=== PATIENT | female | born 1955 | race Caucasian/White ===

== ENCOUNTER → 2018-03-31 | Outpatient (CLI) | payer BC ==
[2018-03-31 13:41] LABS: BASOPHILS ABSOLUTE AUTO 0.04 K/mm3 (0.00-0.23); BASOPHILS PERCENT AUTO 1 % (0-2); EOSINOPHILS ABSOLUTE AUTO 0.09 K/mm3 (0.00-0.68); EOSINOPHILS PERCENT AUTO 1 % (0-6); Hematocrit 45.5 % (33.0-51.0); Hemoglobin 15.1 g/dL (11.5-16.0); IMMATURE GRAN ABSOLUTE AUTO 0.02 K/mm3 (0.00-0.10); IMMATURE GRAN PERCENT AUTO 0 % (0-1); LYMPHOCYTES ABSOLUTE AUTO 2.51 K/mm3 (0.84-5.20); LYMPHOCYTES PERCENT AUTO 34 % (21-46); MONOCYTES ABSOLUTE AUTO 0.62 K/mm3 (0.16-1.47); MONOCYTES PERCENT AUTO 8 % (4-13); Mean Corpuscular HGB 29.4 pg (26.0-34.0); Mean Corpuscular HGB Conc 33.2 g/dL (31.5-36.5); Mean Corpuscular Volume 89 fL (80-100); Mean Platelet Volume 11.5 fL (9.1-12.4); NEUTROPHILS ABSOLUTE AUTO 4.18 K/mm3 (1.96-9.15); NEUTROPHILS PERCENT AUTO 56 % (41-73); Platelet Count 247 K/mm3 (150-400); RDW Coefficient Variation 12.8 % (11.7-14.2); RDW Standard Deviation 41.3 fL (35.1-46.3); Red Blood Cell Count 5.13 M/mm3 (3.80-5.20); White Blood Cell Count 7.46 K/mm3 (4.00-11.30)
[2018-03-31 14:31] LABS: Alanine Aminotransfer (ALT/SGP 30 U/L (12-78); Albumin/Globulin Ratio 1.2 (0.8-1.8); Alk Phos 93 U/L (50-136); Anion Gap 13 mmol/L (6-16); Aspartate Aminotrans (AST/SGOT 27 U/L (12-37); Bilirubin, Total 0.5 mg/dL (0.1-1.0); Blood Urea Nitrogen 13 mg/dL (8-24); Bun/Creatinine Ratio 13.3 (12.0-20.0); CO2, Blood 20 mmol/L (21-32); Calcium, Blood 9.5 mg/dL (8.5-10.1); Chloride, Blood 107 mmol/L (98-108); Creatinine, Blood 0.98 mg/dL (0.40-1.00); Free Thyroxine 1.29 ng/dL (0.70-1.60); Globulin, Blood 3.2 g/dL (2.2-4.0); Glomerular Filtration Rate >60 (60-); Glucose, Blood 99 mg/dL (70-99); Potassium, Blood 3.8 mmol/L (3.5-5.5); Sodium, Blood 140 mmol/L (136-145); Total Protein, Blood 7.2 g/dL (6.4-8.2)
== END ==
LOC: LAB 13:25 → LAB SHORT 13:25
PROVIDERS: Hospitalist
DX: E03.9 Hypothyroidism, unspecified (principal); E78.5 Hyperlipidemia, unspecified; I10 Essential (primary) hypertension
CPT/HCPCS: 80053; 84439; 84443; 85025

== ENCOUNTER → 2018-09-01 | Outpatient (CLI) | payer BC ==
[2018-09-02 16:07] LABS: HPV 16 Negative (Negative); HPV 18 Negative (Negative); HPV OTHER HR TYPES Negative (Negative)
== END | disposition home or self-care (01) ==
LOC: LAB 13:19 → LAB SHORT 13:19
PROVIDERS: Nurse Practitioner Women's Health
DX: Z12.4 Encounter for screening for malignant neoplasm of cervix (principal); N89.8 Other specified noninflammatory disorders of vagina; Z91.89 Other specified personal risk factors, not elsewhere classified
CPT/HCPCS: 87070; 87147; 87205; 87624; G0123

== ENCOUNTER 2019-03-02 08:00 | Day surgery (SDC) | payer BC ==
[~2019-03-02 08:00] MED LIST: Azor 5-20 MG T1 EACH PO; CHOL10002 PO; COQ1050 MG PO; DIGOX125 MCG PO; ELIQUIS5 MG PO; LEVSOD88 PO; METO50 PO; MULTI VITAMIN1 EACH PO; NAPR220 PO; Vitamin B Comple1 EA PO; ZINC15 PO
== END 2019-03-02 22:39 | disposition home or self-care (01) ==
LOC: MOI MAM 08:00
DX: D24.2 Benign neoplasm of left breast (principal)
CPT/HCPCS: 19081; 88305

== ENCOUNTER → 2019-05-06 | Outpatient (CLI) | payer BC ==
[2019-05-06 14:57] LABS: Free Thyroxine 1.28 ng/dL (0.70-1.60); Thyroid Stimulating Hormone 2.98 uIU/mL (0.360-4.800)
== END | disposition home or self-care (01) ==
LOC: LAB SHORT 13:06 → LAB 13:06
PROVIDERS: Hospitalist
DX: E03.9 Hypothyroidism, unspecified (principal)
CPT/HCPCS: 84439; 84443

== ENCOUNTER → 2022-01-30 | Outpatient (CLI) | payer BC ==
[2022-01-30 15:34] LABS: BASOPHILS ABSOLUTE AUTO 0.04 K/mm3 (0.00-0.23); BASOPHILS PERCENT AUTO 1 % (0-2); EOSINOPHILS ABSOLUTE AUTO 0.07 K/mm3 (0.00-0.68); EOSINOPHILS PERCENT AUTO 1 % (0-6); Hematocrit 45.9 % (33.0-51.0); Hemoglobin 15.5 g/dL (11.5-16.0); IMMATURE GRAN ABSOLUTE AUTO 0.02 K/mm3 (0.00-0.10); IMMATURE GRAN PERCENT AUTO 0 % (0-1); LYMPHOCYTES ABSOLUTE AUTO 1.11 K/mm3 (0.84-5.20); LYMPHOCYTES PERCENT AUTO 18 % (21-46); MONOCYTES ABSOLUTE AUTO 0.58 K/mm3 (0.16-1.47); MONOCYTES PERCENT AUTO 9 % (4-13); Mean Corpuscular HGB 30.9 pg (26.0-34.0); Mean Corpuscular HGB Conc 33.8 g/dL (31.5-36.5); Mean Corpuscular Volume 92 fL (80-100); Mean Platelet Volume 11.5 fL (9.1-12.4); NEUTROPHILS PERCENT AUTO 71 % (41-73); Platelet Count 218 K/mm3 (150-400); RDW Coefficient Variation 12.4 % (11.7-14.2); RDW Standard Deviation 41.7 fL (35.1-46.3); Red Blood Cell Count 5.01 M/mm3 (3.80-5.20); White Blood Cell Count 6.32 K/mm3 (4.00-11.30)
[2022-01-30 16:00] LABS: Free Thyroxine 1.24 ng/dL (0.70-1.60)
[2022-01-30 16:03] LABS: Albumin, Blood 3.6 g/dL (3.4-5.0); Albumin/Globulin Ratio 1.2 (0.8-1.8); Bilirubin, Total 0.5 mg/dL (0.1-1.0); Calcium, Blood 9.7 mg/dL (8.5-10.1); Creatinine, Blood 0.77 mg/dL (0.40-1.00); Globulin, Blood 3.1 g/dL (2.2-4.0); Potassium, Blood 4.5 mmol/L (3.5-5.5); Thyroid Stimulating Hormone 2.69 uIU/mL (0.360-4.800); Total Protein, Blood 6.7 g/dL (6.4-8.2); Triiodothyronine, Free 2.24 pg/mL (2.18-3.98)
== END | disposition home or self-care (01) ==
LOC: LAB SHORT 13:11 → LAB 13:11
PROVIDERS: Hospitalist
DX: I48.11 Longstanding persistent atrial fibrillation (principal); E03.9 Hypothyroidism, unspecified
CPT/HCPCS: 80053; 84439; 84443; 84481; 85025

== ENCOUNTER → 2022-11-19 | Outpatient (CLI) | payer BC ==
[2022-11-19 19:57] LABS: Alanine Aminotransfer (ALT/SGP 26 U/L (12-78); Albumin, Blood 3.7 g/dL (3.4-5.0); Albumin/Globulin Ratio 1.4 (0.8-1.8); Alk Phos 86 U/L (50-136); Anion Gap 3 mmol/L (6-16); Aspartate Aminotrans (AST/SGOT 18 U/L (12-37); Bilirubin, Total 0.4 mg/dL (0.1-1.0); Blood Urea Nitrogen 21 mg/dL (8-24); Bun/Creatinine Ratio 26.4 (12.0-20.0); CHOL/HDL RATIO 2.7; CO2, Blood 26 mmol/L (21-32); Calcium, Blood 9.6 mg/dL (8.5-10.1); Chloride, Blood 108 mmol/L (98-108); Cholesterol 185 mg/dL (50-200); Free Thyroxine 1.13 ng/dL (0.70-1.60); Globulin, Blood 2.7 g/dL (2.2-4.0); Glomerular Filtration Rate 80 (60-); Glucose, Blood 100 mg/dL (70-99); HDL Cholesterol 68 mg/dL (>39); LDL/HDL RATIO 1.5; Low Density Lipoprotein Chol 100 mg/dL (0-110); Sodium, Blood 137 mmol/L (136-145); Total Protein, Blood 6.4 g/dL (6.4-8.2); Triglycerides 85 mg/dL (30-160); Very Low Density Lipoprot Chol 17 mg/dL (6-32)
[2022-11-19 20:02] LABS: Triiodothyronine, Free 1.95 pg/mL (2.18-3.98)
== END | disposition home or self-care (01) ==
LOC: LAB 13:45 → LAB SHORT 13:45
PROVIDERS: Hospitalist
DX: H57.89 Other specified disorders of eye and adnexa (principal); E03.9 Hypothyroidism, unspecified; E78.5 Hyperlipidemia, unspecified; I10 Essential (primary) hypertension
CPT/HCPCS: 80053; 80061; 84439; 84443; 84481; 85651

== ENCOUNTER → 2023-07-15 | Outpatient (CLI) | payer BC ==
[2023-07-15 17:25] LABS: CHOL/HDL RATIO 2.7; Cholesterol 202 mg/dL (50-200); Free Thyroxine 1.21 ng/dL (0.70-1.60); HDL Cholesterol 74 mg/dL (>39); LDL/HDL RATIO 1.5; Low Density Lipoprotein Chol 112 mg/dL (0-110); Triglycerides 78 mg/dL (30-160); Very Low Density Lipoprot Chol 15 mg/dL (6-32)
[2023-07-15 17:28] LABS: Triiodothyronine, Free 2.35 pg/mL (2.18-3.98)
== END | disposition home or self-care (01) ==
LOC: LAB 11:00 → LAB SHORT 11:00
PROVIDERS: Hospitalist
DX: E03.9 Hypothyroidism, unspecified (principal); E78.5 Hyperlipidemia, unspecified
CPT/HCPCS: 80061; 84439; 84443; 84481

== ENCOUNTER → 2024-05-19 | Outpatient (CLI) | payer BC ==
[2024-05-19 15:19] LABS: Anion Gap 10 mmol/L (3-11); Blood Urea Nitrogen 15 mg/dL (8-24); Bun/Creatinine Ratio 18.6 (12.0-20.0); CHOL/HDL RATIO 2.4; CO2, Blood 24 mmol/L (21-32); Calcium, Blood 9.5 mg/dL (8.5-10.1); Chloride, Blood 112 mmol/L (98-108); Cholesterol 196 mg/dL (50-200); Creatinine, Blood 0.81 mg/dL (0.40-1.00); Free Thyroxine 1.18 ng/dL (0.70-1.60); Glomerular Filtration Rate 78 (60-); Glucose, Blood 97 mg/dL (70-99); HDL Cholesterol 80 mg/dL (>39); LDL/HDL RATIO 1.2; Low Density Lipoprotein Chol 100 mg/dL (0-110); Potassium, Blood 4.4 mmol/L (3.5-5.5); Sodium, Blood 142 mmol/L (136-145); Triglycerides 81 mg/dL (30-160); Very Low Density Lipoprot Chol 16 mg/dL (6-32)
== END ==
LOC: LAB 13:36 → LAB SHORT 13:36
PROVIDERS: Hospitalist
DX: E03.9 Hypothyroidism, unspecified (principal); E78.5 Hyperlipidemia, unspecified; I10 Essential (primary) hypertension
CPT/HCPCS: 80048; 80061; 84439; 84443

== ENCOUNTER 2025-04-27 15:01 | Inpatient (IN) | payer MEDICARE, BC ==
[~2025-04-27] VITALS: Ht 160 cm; Wt 129.2 kg
[2025-04-27 15:27] LABS: pH Blood Venous 7.39 (7.34-7.37)
[2025-04-27] MEDS ORDERED: Metoprolol Tartrate 1 MG/ML 5 ML VIAL IV PRN (15:30)
[2025-04-27] MEDS ORDERED: Tambocor100 MG PO (15:31)
[2025-04-27] MEDS ORDERED: NS 1,000 ML IV SCH (15:35)
[2025-04-27 15:40] LABS: BASOPHILS ABSOLUTE AUTO 0.05 K/mm3 (0.00-0.23); BASOPHILS PERCENT AUTO 1 % (0-2); EOSINOPHILS ABSOLUTE AUTO 0.05 K/mm3 (0.00-0.68); EOSINOPHILS PERCENT AUTO 1 % (0-6); Hematocrit 46.9 % (33.0-51.0); Hemoglobin 15.8 g/dL (11.5-16.0); IMMATURE GRAN ABSOLUTE AUTO 0.03 K/mm3 (0.00-0.10); IMMATURE GRAN PERCENT AUTO 0 % (0-1); LYMPHOCYTES ABSOLUTE AUTO 1.09 K/mm3 (0.84-5.20); LYMPHOCYTES PERCENT AUTO 13 % (21-46); MONOCYTES ABSOLUTE AUTO 0.60 K/mm3 (0.16-1.47); MONOCYTES PERCENT AUTO 7 % (4-13); Mean Corpuscular HGB Conc 33.7 g/dL (31.5-36.5); Mean Corpuscular Volume 93 fL (80-100); NEUTROPHILS ABSOLUTE AUTO 6.30 K/mm3 (1.96-9.15); NEUTROPHILS PERCENT AUTO 78 % (41-73); NRBC ABSOLUTE 0.00 K/mm3 (0.00-0.02); NRBC Auto 0.0 /100 WBC (0.0-0.2); Platelet Count 205 K/mm3 (150-400); RDW Coefficient Variation 13.5 % (11.7-14.2); RDW Standard Deviation 46.7 fL (35.1-46.3)
[2025-04-27 15:53] LABS: Alanine Aminotransfer (ALT/SGP 58.0 U/L (12-78); Albumin, Blood 3.5 g/dL (3.4-5.0); Albumin/Globulin Ratio 1.1 (0.8-1.8); Anion Gap 13.0 mmol/L (3-11); Aspartate Aminotrans (AST/SGOT 50.0 U/L (12-37); Bilirubin, Total 0.7 mg/dL (0.1-1.0); Blood Urea Nitrogen 16.0 mg/dL (8-24); CO2, Blood 22.0 mmol/L (21-32); Calcium, Blood 9.3 mg/dL (8.5-10.1); Chloride, Blood 107.0 mmol/L (98-108); Creatinine, Blood 1.0 mg/dL (0.40-1.00); Globulin, Blood 3.2 g/dL (2.2-4.0); Glucose, Blood 146.0 mg/dL (70-99); Potassium, Blood 4.4 mmol/L (3.5-5.5); Sodium, Blood 138.0 mmol/L (136-145); Total Protein, Blood 6.7 g/dL (6.4-8.2)
[2025-04-27] MEDS ORDERED: Ondansetron HCl 2 MG / ML 2ML Vial IV ONE (16:30)
[2025-04-27] MEDS ORDERED: Furosemide 10 MG / ML 2ML Vial IV ONE (17:05)
[2025-04-27] MEDS ORDERED: FLU VACC TS2025(65UP)/MF59C/PF 45 MCG/0.5 ML SYRINGE IM SCH (18:40)
[2025-04-27] MEDS ORDERED: Ondansetron HCl 2 MG / ML 2ML Vial IV PRN (18:40)
[2025-04-27] MEDS ORDERED: Diltiazem HCL 125MG/D5 125ML IV SCH (18:45)
[2025-04-27] MEDS ORDERED: Lactobacil 2-S.Thermo-Bifido 1 1 Cap PO SCH (21:00)
[2025-04-27 21:57] VITALS: BP 122/78
[2025-04-27] MEDS ORDERED: LEVSOD112 PO (22:02)
[2025-04-27] MEDS ORDERED: METO25 PO (22:05)
[2025-04-27 23:37] VITALS: BP 121/89
[2025-04-28] VITALS (16 sets, daily range): BP systolic 106–132; BP diastolic 76–94
[2025-04-28 00:35] LABS: BASOPHILS ABSOLUTE AUTO 0.04 K/mm3 (0.00-0.23); BASOPHILS PERCENT AUTO 1 % (0-2); EOSINOPHILS ABSOLUTE AUTO 0.04 K/mm3 (0.00-0.68); EOSINOPHILS PERCENT AUTO 1 % (0-6); Hematocrit 43.1 % (33.0-51.0); Hemoglobin 14.5 g/dL (11.5-16.0); IMMATURE GRAN ABSOLUTE AUTO 0.02 K/mm3 (0.00-0.10); IMMATURE GRAN PERCENT AUTO 0 % (0-1); LYMPHOCYTES ABSOLUTE AUTO 0.89 K/mm3 (0.84-5.20); LYMPHOCYTES PERCENT AUTO 12 % (21-46); MONOCYTES ABSOLUTE AUTO 0.74 K/mm3 (0.16-1.47); MONOCYTES PERCENT AUTO 10 % (4-13); Mean Corpuscular HGB Conc 33.6 g/dL (31.5-36.5); Mean Corpuscular Volume 92 fL (80-100); NEUTROPHILS ABSOLUTE AUTO 5.55 K/mm3 (1.96-9.15); NEUTROPHILS PERCENT AUTO 76 % (41-73); NRBC ABSOLUTE 0.00 K/mm3 (0.00-0.02); NRBC Auto 0.0 /100 WBC (0.0-0.2); Platelet Count 175 K/mm3 (150-400); RDW Coefficient Variation 13.6 % (11.7-14.2); RDW Standard Deviation 46.3 fL (35.1-46.3)
[2025-04-28 00:56] LABS: Alanine Aminotransfer (ALT/SGP 52.0 U/L (12-78); Albumin, Blood 3.2 g/dL (3.4-5.0); Albumin/Globulin Ratio 1.1 (0.8-1.8); Anion Gap 10.0 mmol/L (3-11); Aspartate Aminotrans (AST/SGOT 41.0 U/L (12-37); Bilirubin, Total 0.6 mg/dL (0.1-1.0); Blood Urea Nitrogen 19.0 mg/dL (8-24); CO2, Blood 23.0 mmol/L (21-32); Calcium, Blood 9.1 mg/dL (8.5-10.1); Chloride, Blood 110.0 mmol/L (98-108); Creatinine, Blood 1.01 mg/dL (0.40-1.00); Globulin, Blood 2.8 g/dL (2.2-4.0); Glucose, Blood 100.0 mg/dL (70-99); Potassium, Blood 3.9 mmol/L (3.5-5.5); Sodium, Blood 139.0 mmol/L (136-145); Total Protein, Blood 6.0 g/dL (6.4-8.2)
--- NOTE | 2025-04-28 01:29 | NUR ---
NEW ADMIT AND RAPID RESPONSE PT ADMIT FOR CHF EXACERBATION AND SOB FOR TWO WEEKS. ARRIVED TO FLOOR AT 2145. PT REPORTS SHE LIVES AT HOME ALONE. SHE HAS NO FRIENDS OR FAMILY. PT USUALLY DRIVES HER SELF BUT SHE TOOK A CAB TO THE HOSPITAL SAIYING "I KNEW IT WAS BAD" PT HAS NO SUPPORTIVE RESOURCES. FLAT AFFECT AND WITHDRAWN. PT IS VERY PRIVATE AND SKEPTICAL OF THIS RN/HOSPITAL STAFF. PT WAS PLACED ON TELE. PT NOTED TO BEING VERY SOB WITH MINIMAL ACTIVITY. TELE WAS ALERTING TO ST CHANGES. DR SALAZAR WAS CALLED. NEW ORDER FOR ORAL METOPROLOL 25MG--MED GIVEN. PT WENT TO THE BATHROOM AND BECAME VERY SOB WITH CYANOTIC LIPS AND C/O OF HEART PALPATATIONS. RAPID RESPONSE CALLED. SEE SUBWAY OPERATOR INITATION DOCUMENTATION. PATIENT TRANSFERED TO PCU 6. REPORT GIVEN TO ISSAC. ALL PERSONAL BELONGINGS WAS TRANSPORTED WITH THE PATIENT.
[2025-04-28 01:50] LABS: Magnesium, Blood 1.8 mg/dL (1.6-2.4); Phosphorus, Blood 3.4 mg/dL (2.5-4.9)
--- NOTE | 2025-04-28 02:49 | NUR ---
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 VITALS IN, PT DENIES CHEST PAIN, EKG READ TO MD AND MD TO COME LOOK AT THE REPORT.
[2025-04-28 04:07] LABS: BASOPHILS ABSOLUTE AUTO 0.05 K/mm3 (0.00-0.23); BASOPHILS PERCENT AUTO 1 % (0-2); EOSINOPHILS ABSOLUTE AUTO 0.08 K/mm3 (0.00-0.68); EOSINOPHILS PERCENT AUTO 1 % (0-6); Hematocrit 45.1 % (33.0-51.0); Hemoglobin 14.9 g/dL (11.5-16.0); IMMATURE GRAN ABSOLUTE AUTO 0.03 K/mm3 (0.00-0.10); IMMATURE GRAN PERCENT AUTO 0 % (0-1); LYMPHOCYTES ABSOLUTE AUTO 1.40 K/mm3 (0.84-5.20); LYMPHOCYTES PERCENT AUTO 19 % (21-46); MONOCYTES ABSOLUTE AUTO 0.79 K/mm3 (0.16-1.47); MONOCYTES PERCENT AUTO 11 % (4-13); Mean Corpuscular HGB Conc 33.0 g/dL (31.5-36.5); Mean Corpuscular Volume 93 fL (80-100); NEUTROPHILS ABSOLUTE AUTO 5.13 K/mm3 (1.96-9.15); NEUTROPHILS PERCENT AUTO 69 % (41-73); NRBC ABSOLUTE 0.00 K/mm3 (0.00-0.02); NRBC Auto 0.0 /100 WBC (0.0-0.2); Platelet Count 155 K/mm3 (150-400); RDW Coefficient Variation 13.6 % (11.7-14.2); RDW Standard Deviation 46.3 fL (35.1-46.3)
--- NOTE | 2025-04-28 04:30 | NUR ---
MD NOTIFICATION MD JOEL CAME TO CHECK ON PT. REVIEWED EKG AND ORDERED 3 TROPONINS Q 8 HOURS. PT DENIES ANY CHEST PAIN OR PALPITATIONS. OK WITH PT GOING TO RR W STAFF ASSIST. PT HEART RATE ELEVATED AND DISCUSSED MAY ONLY USE BEDSIDE COMMODE FOR HEART STRAIN AND EDUCATED WITH TRANSITIONAL CARE LIAISON.
[2025-04-28 04:41] LABS: Alanine Aminotransfer (ALT/SGP 54.0 U/L (12-78); Albumin, Blood 3.3 g/dL (3.4-5.0); Albumin/Globulin Ratio 1.2 (0.8-1.8); Anion Gap 9.0 mmol/L (3-11); Aspartate Aminotrans (AST/SGOT 45.0 U/L (12-37); Bilirubin, Total 0.6 mg/dL (0.1-1.0); Blood Urea Nitrogen 19.0 mg/dL (8-24); CO2, Blood 25.0 mmol/L (21-32); Calcium, Blood 9.2 mg/dL (8.5-10.1); Chloride, Blood 108.0 mmol/L (98-108); Creatinine, Blood 0.98 mg/dL (0.40-1.00); Globulin, Blood 2.8 g/dL (2.2-4.0); Glucose, Blood 81.0 mg/dL (70-99); Magnesium, Blood 1.9 mg/dL (1.6-2.4); Potassium, Blood 3.9 mmol/L (3.5-5.5); Sodium, Blood 138.0 mmol/L (136-145); Thyroid Stimulating Hormone 2.6 uIU/mL (0.360-4.800); Total Protein, Blood 6.1 g/dL (6.4-8.2)
[2025-04-28 05:16] LABS: Source, Urine Clean Catch
[2025-04-28 05:28] LABS: Bilirubin, Urine Neg (Neg); Glucose Qualitative, Urine Neg (Neg); Ketones, Urine Neg (Neg); Leukocyte Esterase, Urine Neg (Neg); Protein, Urine 1+ (Neg); Specific Gravity, Urine 1.020 (1.003-1.022); Urobilinogen, Urine NORM (Normal)
[2025-04-28 05:36] LABS: Color, Urine Yellow (P-Yellow)
--- NOTE | 2025-04-28 06:40 | NUR ---
END OF SHIFT NOTIFICATION PT ADMITTED TO UNIT W RAPID RESPONSE. MD JOEL ORDERED UA AND CMP, CBC AND INR. PT ON MONITOR AND CARDIZEM DRIP STARTED. MD SALAZAR CALLED AND CANCELLED DRIP AND ORDERED DIG LOADING. HEART RATE IN AFIB RVR IN 80-LOW 100'S IN BED. ST ELEVATION ON MONITOR AND MD RODRIGUEZ NOTIFIED THAT EKG WAS DONE. MD JOEL CAME TO SEE PT AND ORDERED TROPONINS Q 8 HOURS. MD RODRIGUEZ CALLED W FIRST TROPONIN AT 156. BARREL HANDLER CAME AND DISCUSSED W PT THAT FOR URINE VOIDS, PT WILL NEED TO USE BEDSIDE COMMODE FOR PT SAFETY TO MINIMIZE HEART STRAIN TILL MEDICATIONS BETTER CONTROL HEART RATE.
--- NOTE | 2025-04-28 09:05 | NUR ---
ASSUMPTION OF CARE: PATIENT IS ALERT AND ORIENTED X 4, ODD, ANXIOUS, FEELING FATIGUED. DENIES CHEST PAIN PRESSURE OR SOB AT REST, HEARTRATE IS 100-130'S BLOD PRESSURE NORMOTENSIVE, RECIEVING IV LASIX AND DIGOXIN INCLUDING TYPICAL HOME DOSING OF METOPROLOL AND FLECANIDE. CONTINUOUS TELE IN PLACE. ON RA SPO2 >94% PATIENT DOES HAVE CHANGES ON TELE AND EKG, HOSPITALIST THROUGH THE NIGHT NOTIFIED AND REVIED NEW EKG. PLAN OF CARE CONTINUES. PATIENT REFUSING BSC, IS DYSPNIC WITH EXERTION. NO ACUTE CONCERN CURRENLTY
--- NOTE | 2025-04-28 16:41 | NUR ---
EOS: PATIETN ALERT AND ORIENTED X 4 ABLE TO MAKE NEEDS KNOWN, DENIES CHEST PAIN PRESSURE OR SOB AT REST, MOBILITY IMPROVING WELL, DIURESING WELL. HR LESS THAN 100. DECREASED EXERTIONAL DYSPNEA. NEW IV LEFT FOREARM US PLACED. DIURETICS BID. STILL ON RA. NO ACUTE CONCERN VSS AFEBRILE.
[2025-04-29 04:13] VITALS: BP 137/97
--- NOTE | 2025-04-29 06:15 | NUR ---
SHIFT SUMMARY PATINET ALERT AND ORIENTED X4. HAD NO ACOMPLAINTS OF PAIN OR SHORTNESS OF BREATH. ON ROOM AIR WITH SPO2 >90%. WILL CONTINUE TO MONITOR. NO ACUTE ISSUES NOTEDO VERNIGHT. CALL LIGHT WITHIN REACH.
--- NOTE | 2025-04-29 08:27 | NUR ---
ASSUMPTION NOTE: THIS RN TO ASSUME CARE OF PATIENT. PATIENT EASILY AROUSABLE IN BED AND RESTING. VITAL SIGNS TAKEN AND PATIENT STABLE. PATIENT ASKED TO GET THE FLU VACCINE WHILE HERE AND COVID. THIS RN TO GIVE FLU VACCINE WITH MORNING MEDICATIONS. PATIENT HAS CALL LIGHT WITHIN REACH, BED IN LOWEST LOCKED POSITION AND STATING NOTHING ELSE IS NEEDED AT THIS TIME.
[2025-04-29 08:28] VITALS: BP 111/70
[2025-04-29 10:31] LABS: Alanine Aminotransfer (ALT/SGP 47.0 U/L (12-78); Albumin, Blood 2.9 g/dL (3.4-5.0); Albumin/Globulin Ratio 1.0 (0.8-1.8); Anion Gap 9.0 mmol/L (3-11); Aspartate Aminotrans (AST/SGOT 76.0 U/L (12-37); Bilirubin, Total 0.5 mg/dL (0.1-1.0); Blood Urea Nitrogen 12.0 mg/dL (8-24); CO2, Blood 28.0 mmol/L (21-32); Calcium, Blood 8.8 mg/dL (8.5-10.1); Chloride, Blood 108.0 mmol/L (98-108); Creatinine, Blood 0.77 mg/dL (0.40-1.00); Globulin, Blood 3.0 g/dL (2.2-4.0); Glucose, Blood 68.0 mg/dL (70-99); Magnesium, Blood 1.9 mg/dL (1.6-2.4); Phosphorus, Blood 3.8 mg/dL (2.5-4.9); Potassium, Blood 4.9 mmol/L (3.5-5.5); Sodium, Blood 140.0 mmol/L (136-145); Total Protein, Blood 5.9 g/dL (6.4-8.2)
[2025-04-29 12:00] VITALS: BP 112/82
--- NOTE | 2025-04-29 12:15 | NUR ---
MD ROUNDED: MD ROUNDED AND SPOKE WITH PATIENT. PATIENT AGREEABLE TO STAYING ANOTHER NIGHT AND WORKING TO GET MORE FLUID OFF OF HER. PATIENT WOULD PREFER TO GO HOME TODAY BUT AGREEABLE TO STAYING ANOTHER NIGHT. MD TO ADD NEW MEDCIATIONS TO PATIENT'S LIST AND TO MONITOR OVERNIGHT TO SEE IF PATIENT TOLERATES IT.
[2025-04-29 15:57] VITALS: BP 112/75
--- NOTE | 2025-04-29 17:12 | NUR ---
SHIFT SUMMARY: PATIENT IS ALERT AND ORIENTED X4 & COOPERATIVE WITH HER CARE, IS ABLE TO MAKE NEEDS KNOWN & USES CALL LIGHT APPROPRIATELY. PATIENT SATTING>92% ON ROOM AIR. ON TELE SHOWING AFIB WITH RATE IN 80 S WHEN GOING TO THE BATHROOM PATIENT TACHS UP INTO 130 S. PATIENT RESTED IN BED THROUGHOUT THE DAY. FLAT AND WITHDRAWN EFFECT THROUGHOUT THE SHIFT. PATIENT AGREEABLE TO STAYING ANOTHER NIGHT AND ADDING MORE MEDICATIONS FOR HEART FAILURE AND GETTING MORE FLUIDS OFF. PATIENT WAS PLACED ON A FLUID RESTRICTION OF 1500MLS/DAY AND LOOKING AT A POSSIBLE DISCHARGE TOMORROW. PATIENT IS IN BED,WITH LOWEST LOCKED POSITION,CALL LIGHT WITHIN REACH & STATING NOTHING ELSE IS NEEDED AT THIS TIME.
[2025-04-29 22:02] VITALS: BP 104/73
[2025-04-30 00:21] VITALS: BP 121/72
[2025-04-30 04:29] VITALS: BP 98/62
[2025-04-30 05:22] LABS: Albumin, Blood 3.0 g/dL (3.4-5.0); Anion Gap 9 mmol/L (3-11); Blood Urea Nitrogen 11 mg/dL (8-24); CO2, Blood 29 mmol/L (21-32); Calcium, Blood 9.1 mg/dL (8.5-10.1); Chloride, Blood 106 mmol/L (98-108); Creatinine, Blood 0.85 mg/dL (0.40-1.00); Glucose, Blood 87 mg/dL (70-99); Magnesium, Blood 2.0 mg/dL (1.6-2.4); Phosphorus, Blood 3.5 mg/dL (2.5-4.9); Potassium, Blood 3.7 mmol/L (3.5-5.5); Sodium, Blood 140 mmol/L (136-145)
[2025-04-30 07:50] VITALS: BP 118/62
[2025-04-30 11:32] VITALS: BP 103/67
--- NOTE | 2025-04-30 12:04 | NUR ---
UPDATE PATIENT REPORTING CONCERNS REGARDING ABILITY TO AMBULATE IN ORDER TO OBTAIN PRESCRIPTION MEDICATIONS UPON DISCHARGE. PROVIDER CONTACTED WITH PATIENT CONCERS, THIS RN RECOMMENDED PT EVALUATION PRIOR TO DISCHARGE, NEW ORDERS RECEIVED.
[2025-04-30] MEDS ORDERED: JARDIANCE10 MG PO (12:39)
[2025-04-30] MEDS ORDERED: FURO40 PO (12:40)
[2025-04-30] MEDS ORDERED: SPIR25 PO (12:40)
[2025-04-30] MEDS ORDERED: LISI5 PO (12:40)
[2025-04-30 15:30] VITALS: BP 134/69
--- NOTE | 2025-04-30 16:48 | NUR ---
SHIFT SUMMARY/DISCHARGE PATIENT IS ALERT AND ORIENTED, ABLE TO FOLLOW COMMANDS AND MAKE NEEDS KNOWN. VSS, HR AFIB 80'S, PATIENT DENIES CHEST PAIN OR PRESSURE, SPO2 >90% ON RA. PATIENT DENIES N/V/D. PATIENT DOES REPORT SOME WEAKNESS POTENTIALLY DUE TO DECONDITIONING, PROVIDER MADE AWARE, PT CONSULT COMPLETED, SEE NOTE FOR RECOMMENDATION. PATIENT IS A SBA WITH A FWW TO THE BATHROOM. PATIENT UP IN BED, BED IN LOWEST POSITION, CALL LIGHT WITHIN REACH. DISCHARGE INSTRUCTIONS PROVIDED TO PATIENT. PATIENT VERBALIZED UNDERSTANDING OF DISCHARGE INSTRUCTIONS, ALL QUESTIONS ANSWERED. PATIENT EXHIBITING NO SIGNS OF DISTRESS, VSS. PATIENT LEFT UNIT AT 1645 VIA WHEELCHAIR WITH ALL PERSONAL BELONGINGS.
== END 2025-04-30 16:49 | disposition home health service (06) | DRG 280 ==
LOC: ER 15:01 → PCU 19:06 → MEDS 19:06 → PCU 19:06 → MEDS 21:41 → PCU 23:44
PROVIDERS: Emergency Medicine; Internal Medicine; ADMIT Internal Medicine
DX: I21.4 Non-ST elevation (NSTEMI) myocardial infarction (principal); I50.31 Acute diastolic (congestive) heart failure; E87.20 Acidosis, unspecified; I48.20 Chronic atrial fibrillation, unspecified; R91.8 Other nonspecific abnormal finding of lung field; R74.01 Elevation of levels of liver transaminase levels; I44.7 Left bundle-branch block, unspecified; I08.1 Rheumatic disorders of both mitral and tricuspid valves; E03.9 Hypothyroidism, unspecified; Z79.899 Other long term (current) drug therapy; Z79.01 Long term (current) use of anticoagulants; Z79.890 Hormone replacement therapy; Z90.49 Acquired absence of other specified parts of digestive tract
CPT/HCPCS: 36415; 71045; 71260; 80053; 80069; 82803; 83605; 83735; 83880; 84100; 84439; 84443; 84484; 85025; 85730; 90653; 93005; 93010; 93306; 94760; 94762; 96361; 96374; 96375; 96376; 97110; 97116; 97161; 99285-25; A9270; G0378; J1160; J1938; J2405; J7030; Q9967

== ENCOUNTER → 2025-05-04 | Outpatient (CLI) | payer BC ==
[~2025-05-04] MED LIST changes: +FURO40 PO; +JARDIANCE10 MG PO; +LEVSOD112 PO; +LISI5 PO; +METO25 PO; +SPIR25 PO; +Tambocor100 MG PO
[2025-05-04 14:36] LABS: Anion Gap 9.0 mmol/L (3-11); Blood Urea Nitrogen 21.0 mg/dL (8-24); CO2, Blood 28.0 mmol/L (21-32); Calcium, Blood 9.7 mg/dL (8.5-10.1); Chloride, Blood 103.0 mmol/L (98-108); Creatinine, Blood 0.93 mg/dL (0.40-1.00); Glucose, Blood 108.0 mg/dL (70-99); Potassium, Blood 3.5 mmol/L (3.5-5.5); Sodium, Blood 136.0 mmol/L (136-145)
== END ==
LOC: LAB 10:10 → LAB SHORT 10:10
PROVIDERS: Hospitalist
DX: I50.21 Acute systolic (congestive) heart failure (principal)
CPT/HCPCS: 80048